=== PATIENT | female | born 1960 | race Two or more races ===

== ENCOUNTER 2022-03-03 00:17 | Emergency (ER) | payer MEDICAID ==
[~2022-03-03] VITALS: Ht 152.4 cm; Wt 68.0 kg
[2022-03-03] MEDS ORDERED: OXYCODONE W/ ACETAMINOPHEN 5/325MG TABLET PO ONE (01:45)
[2022-03-03] MEDS ORDERED: PERCOT PO (08:33)
[2022-03-03] MEDS ORDERED: ONDA-144 PO (08:33)
[2022-03-03] MEDS ORDERED: AZIT250T9 PO (08:33)
[2022-03-03] MEDS ORDERED: HYDROcodone-ACET 5/325MG TAB PO ONE (08:45)
[2022-03-03 09:21] VITALS: BP 173/83
== END 2022-03-03 09:26 | disposition home or self-care (01) ==
LOC: ER 00:22
DX: S22.42XA Multiple fractures of ribs, left side, initial encounter for closed fracture (principal); W01.0XXA Fall on same level from slipping, tripping and stumbling without subsequent striking against object, initial encounter; Y93.89 Activity, other specified; Y92.89 Other specified places as the place of occurrence of the external cause; Y99.8 Other external cause status
CPT/HCPCS: 70450; 71250; 93005